=== PATIENT | male | born 1955 | race Caucasian/White ===

== ENCOUNTER 2019-05-23 12:48 | Outpatient (CLI) | payer BC ==
--- NOTE | 2019-05-23 13:34 | RAD ---
Exam: Chest 2 views HISTORY: Dyspnea FINDINGS: Normal cardiac silhouette. Lungs are hyperinflated, without consolidation or mass. No pleur al effusion or pneumothorax IMPRESSION: Hyperinflation. COPD. No acute cardiopulmonary process.
== END 2019-05-23 12:49 | disposition home or self-care (01) ==
LOC: RAD 12:48
PROVIDERS: ATTEND Internal Medicine Critical Care Medicine
DX: R06.00 Dyspnea, unspecified (principal); J44.9 Chronic obstructive pulmonary disease, unspecified; R91.8 Other nonspecific abnormal finding of lung field
CPT/HCPCS: 71046